=== PATIENT | male | born 1980 | race African-American/Black ===

== ENCOUNTER 2024-09-21 06:25 | Emergency (ER) | payer SELFPAY ==
[~2024-09-21] VITALS: Ht 182.9 cm; Wt 87.0 kg
[2024-09-21 06:29] VITALS: O2SAT 99
[2024-09-21] MEDS: ACETAMINOPHEN 325MG TABLET PO ONE (07:15)
[2024-09-21] MEDS ORDERED: TOPUD PO (07:27)
[2024-09-21 08:05] VITALS: BP 124/65; PULSE 78; RESP 18; TEMP 36.61404; O2SAT 99
== END 2024-09-21 08:10 | disposition home or self-care (01) ==
LOC: ER 06:25
DX: M25.552 Pain in left hip (principal)
CPT/HCPCS: 73502; 99283